=== PATIENT | female | born 1955 ===

== ENCOUNTER 2023-02-08 17:03 | Emergency (ER) | payer OTHER, MEDICAID ==
[~2023-02-08] VITALS: Ht 165.1 cm; Wt 84.0 kg
[2023-02-08 18:46] VITALS: BP 157/84
== END 2023-02-08 21:08 | disposition home or self-care (01) ==
LOC: EDBD 17:03 → ER 17:03
DX: S16.1XXA Strain of muscle, fascia and tendon at neck level, initial encounter (principal); M25.511 Pain in right shoulder; M25.512 Pain in left shoulder; J45.909 Unspecified asthma, uncomplicated; I10 Essential (primary) hypertension; Z88.1 Allergy status to other antibiotic agents; Z88.5 Allergy status to narcotic agent; V89.2XXA Person injured in unspecified motor-vehicle accident, traffic, initial encounter; Y93.89 Activity, other specified; Y92.89 Other specified places as the place of occurrence of the external cause; Y99.8 Other external cause status
CPT/HCPCS: 72125

== ENCOUNTER 2024-12-10 11:23 | Emergency (ER) | payer OTHER, MEDICAID ==
[~2024-12-10] VITALS: Ht 162.6 cm; Wt 86.0 kg
--- NOTE | 2024-12-10 11:33 | ED.PDOC ---
HPI Comments HPI: Poor Historian. 69-year-old female brought in by ambulance from home for evaluation of hypotension. Patient checked her blood pressure today was 117/64. Patient takes blood pressure medications. Patient has history of been experiencing at least three weeks history of occasional dizziness with the associated nausea. Patient is a [facility] patient and is awaiting a Holter monitor for evaluation of palpitations and irregular heartbeat. On arrival patient denies any active symptoms. Past Medical history: Asthma, HTN, breast cancer , DM 2, neuropathy, spinal stenosis, mitral valve prolapse, CHF Past Surgical history: appendectomy, L mastectomy, R lumpectomy and lymph node removal, D and C Medications: lasix, albuterol, amlodipine, atenolol, prozac Allergies: ciprofloxacin, morphine, IV contrast, iodine, codeine, Social History: denies ETOH, denies tobacco use, denies drug use, REVIEW OF SYSTEMS: CONSTITUTIONAL: Denies acute: fever, diaphoresis, chills, HEAD: Denies acute: headache, photophobia Eyes: Denies acute: Double vision, vision loss, eye pain, eye discharge. EARS: Denies acute: tinnitus, hearing loss, ear discharge, ear pain, THROAT: Denies acute: sore throat, swelling, difficulty swallowing , pain with swallowing, change in voice. NECK: Denies acute: neck pain, neck swelling, stiff neck. HEART: Denies acute : chest pain, palpitations, LUNGS: Denies acute: SOB, wheezing, cough, hemoptysis ABDOMEN: Denies acute: abdominal pain, Vomiting, diarrhea, melena , hematemesis, hematochezia SKIN: Denies acute: rash, redness, lesions, itchiness. EXTREMITIES: Denies acute: calf pain, numbness, tingling, weakness, denies pain in extremity. Denies acute: Low back pain. Neuro: Denies acute: focal neurological deficit, motor or sensory focal neurological deficit, tremors, seizure like activity, confusion, change in mental status, loss of bowel or bladder function, cauda equina like symptoms. : Denies acute: dysuria, hematuria, flank pain, increase in urinary frequency. PSYCH: Denies acute: hallucination, suicidal ideation, homicidal ideation. PHYSICAL EXAM: General: -----no---acute distress, awake and alert. Head: normocephalic, atraumatic. Neck: supple, trachea is midline, no swelling. Throat: Normal phonation. Eyes:, no erythema, no purulent discharge, no proptosis, no icterus. Heart: regular rate, regular rhythm, no significant murmur appreciated. Lungs: no apparent respiratory distress, Able to speak in full sentences. No wheezing, no rhonchi, no crackles. No stridors Clear to auscultation bilaterally. Abdomen: non tender to palpation, non distended, soft, no guarding, no rebound, + bowel sounds. Neuro: Awake, Alert, oriented to name, self, situation, follows commands GCS=15. Speech is normal. Skin: no petechia, no purpura, no cyanosis, non-pale, not jaundice. Lower extremities: --2/4 b/l - Pitting edema no deformity, no focal swelling, no calf TTP. Makes eye contact. moves all four extremities. Face: no apparent facial droop. ED COURSE: Time Seen by MD: 11:32 Reviewed Notes: Nurses Notes, Applications Engineer Notes, Medications, Allergies Allergies: Coded Allergies: Ciprofloxacin (Verified Allergy, Unknown, 02/08/23) Iodine (Verified Allergy, Unknown, 12/10/24) Morphine (Verified Allergy, Unknown, 02/08/23) Uncoded Allergies: STATIN (Allergy, Unknown, 12/10/24) Information Source: Patient, Emergency Med Personnel Mode of Arrival: EMS Past Medical History PAST MEDICAL HISTORY: Asthma, HTN Surgical History: Denies all surgeries WOODYARD OPERATOR History: No Pertinent WOODYARD OPERATOR History Family History Family History: Reviewed,noncontributory to illness Social History Smoker: Non-Smoker Alcohol: Denies ETOH Use Drugs: Denies Drug Use Lives In: Home Was a procedure done? Was a procedure done?: No CP Differential Dx Differential Diagnosis: Other (Includes but not limited to thyroid disease, encephalopathy, electrolyte abnormality, sepsis, infection, intracranial pathology, drug adverse effects, arrhythmia, kidney insufficiency, ACS, CVA, malignancy, anemia) X-Ray, Labs, Meds, VS Vital Signs Date Time Temp Pulse Resp B/P (MAP) Pulse Ox O2 Delivery O2 Flow Rate FiO2 12/10/24 16:43 66 18 158/77 (104) 98 12/10/24 16:38 Room Air* 0 21 12/10/24 14:57 62 18 148/69 (95) 98 151/72 (98) 12/10/24 12:45 62 17 97 Room Air 12/10/24 12:45 98.7 62 17 139/89 (106) 97 98.7 12/10/24 12:03 89.9 68 18 144/80 (101) 99 89.9 12/10/24 11:33 61 Lab Test 12/10/24 14:47 12/10/24 12:49 12/10/24 12:38 12/10/24 11:45 Range/Units Lactic Acid Level 2.4 *H 2.8 *H 0.4-2.0 mmol/L Troponin I High Sensitivity < 3 L 3 L 3 L </=34 ng/L Urine Color Yellow Yellow Urine Clarity Clear Clear Urine pH 6.0 5.0-9.0 Urine Specific [place]all 1.023 1.001-1.035 Urine Protein Trace H Negative Urine Ketones Negative Negative Urine Blood Negative Negative /uL Urine Nitrite Negative Negative Urine Bilirubin Negative Negative Urine Urobilinogen Normal Negative mg/dL Urine Leukocyte Esterase 2+ Negative /uL Urine RBC 2 0 - 4 /hpf Urine Microscopic WBC 5 0-5 /HPF Urine Squamous Epithelial Cells Few <5 /hpf Urine Bacteria None seen None Seen /hpf Urine Mucus Few None Seen Urine Glucose Normal Normal mg/dL White Blood Count 9.3 4.4-10.8 10^3/uL Red Blood Count 5.56 H 4.0-5.20 10^6/uL Hemoglobin 14.8 12.2-16.2 g/dL Hematocrit 44.7 36.0-46.0 % Mean Corpuscular Volume 80.4 80.0-100.0 fL Mean Corpuscular Hemoglobin 26.7 L 28.0-32.0 pg Mean Corpuscular Hemoglobin Concent 33.2 32.0-36.0 g/dL Red Cell Distribution Width 14.8 H 11.8-14.3 % Platelet Count 330 140-450 10^3/uL Mean Platelet Volume 7.8 6.9-10.8 fL Neutrophils (%) (Auto) 67.6 37.0-80.0 % Lymphocytes (%) (Auto) 21.4 10.0-50.0 % Monocytes (%) (Auto) 6.3 0.0-12.0 % Eosinophils (%) (Auto) 4.1 0.0-7.0 % Basophils (%) (Auto) 0.6 0.0-2.0 % Neutrophils # (Auto) 6.3 1.6-8.6 10 ^3/uL Lymphocytes # (Auto) 2.0 0.4-5.4 10 ^3/uL Monocytes # (Auto) 0.6 0-1.3 10 ^3/uL Eosinophils # (Auto) 0.4 0-0.8 10 ^3/uL Basophils # (Auto) 0.1 0-0.2 10 ^3/uL Nucleated Red Blood Cells 0.0 % Sodium Level 138 136-145 mmol/L Potassium Level 3.4 L 3.5-5.1 mmol/L Chloride Level 104 98-107 mmol/L Carbon Dioxide Level 23 20-31 mmol/L Anion Gap 11 5-15 Blood Urea Nitrogen 11 9-23 mg/dL Creatinine 0.65 0.550-1.02 mg/dL Glomerular Filtration Rate Calc 96 >90 mL/min BUN/Creatinine Ratio 16.9 10.0-20.0 Serum Glucose 174 H 74-106 mg/dL Calcium Level 9.4 8.7-10.4 mg/dL Magnesium Level 1.9 1.6-2.6 mg/dL Total Bilirubin 0.6 0.2-1.0 mg/dL Aspartate Amino Transferase (AST) 39 13-40 U/L Alanine Aminotransferase (ALT) 42 H 7-40 U/L Alkaline Phosphatase 142 H 46-116 U/L B-Type Natriuretic Peptide 59.51 0-100 pg/mL Total Protein 6.9 5.7-8.2 g/dL Albumin 4.3 3.2-4.8 g/dL [address] [address] Ph: [phone] DIAGNOSTIC IMAGING Diagnostic Imaging Report : [id number] Signed PATIENT: MIGUEL ÁNGEL MARTIN ACCT: [id number] UNIT: [id number] : 1955 LOC: ER ROOM / BED: / AGE / SEX: 69 / F ADM STATUS: REG ER SERVICE 1133 ORDERING PHYSICIAN: KATHY BENNETT DO PROCEDURE(s): CXRP - CHEST PORTABLE REASON: DIZZY ORDER NUMBER(s): [id number], ACCESSION NUMBER(s): [id number] EXAM: XY CHEST PORTABLE REASON FOR EXAM: DIZZY TECHNIQUE: 1 view of the chest COMPARISON: None FINDINGS: LUNGS: No pleural effusion, consolidation, or pneumothorax pick minimal central pulmonary vascular congestion. MEDIASTINUM: Normal cardiac size BONES: No acute osseous abnormality OTHER: None IMPRESSION: 1. No radiographic evidence of an acute cardiopulmonary process. ATED BY: RICHELLE GALLEGOS MD DICTATED DATE/TIME: 12/10/241209 SIGNED BY: RICHELLE GALLEGOS MD SIGNED DATE/TIME: 12/10/241209 CC: Time of 1ST Reevaluation: 14:55 (THE CASE WAS DISCUSSED WITH THE [facility] ADMITTING TEAM (HPI, PHYSICAL EXAM, LABS AND DIAGNOSTIC TESTS THAT WERE AVAILABLE AT THE TIME OF DISPOSITION, ED COURSE, TREATMENT PLAN) ON THE PHONE. DR. THOMAS AUTHORIZATION NUMBER IS--[id number]) Reevaluation 1ST: Improved Time of 2ND Reevaluation: 16:44 (Orthostatics were obtained and were unremarkable. Patient's symptoms have resolved. Patient states that she does not feel comfortable going home. I offered her to send her to [facility]. She initially agreed but then she change your mind and left against medical advice.) Reevaluation 2ND: Improved Patient Education/Counseling: Diagnosis, Treatment Family Education/Counseling: Other Comments Patient presented with the above HPI.-dizziness episodes----workup was initiated. patient was found with the above mentioned diagnosis. the following medications were ordered: please refer to order lists of meds and tests obtained by myself Dr. Bennett. Patient ED course and VS have been stabilized. Patient has been reassessed in the ED and remained in a stable condition. Pertinent incidental findings were discussed with the patient and/or family. Patient/family voices understanding and is agreeable with plan. Patient has been observed in the ED adequate length of time to insure improvement/stability. Escalation of care considered: Consideration of escalation to observation or admission [facility] was contacted per insurance requirement for transfer the patient for further evaluation and treatment of her presentation. Patient decided to leave against medical advice. Patient ambulating independently in the ED. In no acute distress. Denies any active episodes of dizziness while here in the ED. All the reports of any imaging studies that were ordered by myself were reviewed by myself. Departure 1 Departure Time of Disposition: 16:44 Impression: Primary Impression: Episode of dizziness Additional Impression: Left against medical advice Disposition: LEFT AGAINST MEDICAL ADVICE Condition: Stable Discharged With: Self Heart Score Heart Score: Heart Score Response (Comments) Value History Slightly Suspicious 0 EKG Normal 0 Age >65 2 Risk Factors 1 or 2 risk factors 1 Troponin Normal limit 0 Total 3 I personally scribed for KATHY BENNETT DO ([email or web address]) on 12/10/24 at 11:33. Electronically submitted by Naheed Sidhu ([email or web address]). I personally scribed for KATHY BENNETT DO ([email or web address]) on 12/10/24 at 12:31. Electronically submitted by Naheed Sidhu ([email or web address]). KATHY BENNETT DO Dec 10, 2024 11:33
[2024-12-10 12:11] LABS: Basophils # (auto) 0.1 10 ^3/uL (0-0.2); Basophils % (auto) 0.6 % (0.0-2.0); Eosinophils # (auto) 0.4 10 ^3/uL (0-0.8); Eosinophils % (auto) 4.1 % (0.0-7.0); Hematocrit 44.7 % (36.0-46.0); Hemoglobin 14.8 g/dL (12.2-16.2); Lymphocytes % (auto) 21.4 % (10.0-50.0); Mean Corpuscular Hemoglobin 26.7 pg (28.0-32.0); Mean Corpuscular Hgb Conc. 33.2 g/dL (32.0-36.0); Mean Corpuscular Volume 80.4 fL (80.0-100.0); Monocytes # (auto) 0.6 10 ^3/uL (0-1.3); Monocytes % (auto) 6.3 % (0.0-12.0); Neutrophils # (auto) 6.3 10 ^3/uL (1.6-8.6); Neutrophils % (auto) 67.6 % (37.0-80.0); Platelet Count (auto) 330 10^3/uL (140-450); Red Blood Cells 5.56 10^6/uL (4.0-5.20); Red Cell Distribution Width 14.8 % (11.8-14.3); White Blood Cell 9.3 10^3/uL (4.4-10.8)
--- NOTE | 2024-12-10 12:12 | DVH ---
EXAM: XY CHEST PORTABLE REASON FOR EXAM: DIZZY TECHNIQUE: 1 view of the chest COMPARISON: None FINDINGS: LUNGS: No pleural effusion, consolidation, or pneumothorax pick minimal central pulmonary vascular co ngestion. MEDIASTINUM: Normal cardiac size BONES: No acute osseous abnormality OTHER: None IMPRESSION: 1. No radiographic evidence of an acute cardiopulmonary process.
[2024-12-10 12:26] LABS: Alanine Aminotransferase 42 U/L (7-40); Albumin 4.3 g/dL (3.2-4.8); Alkaline Phosphatase 142 U/L (46-116); Anion Gap 11 (5-15); Aspartate Aminotransferase 39 U/L (13-40); BUN/Creatinine Ratio 16.9 (10.0-20.0); Bilirubin, Total 0.6 mg/dL (0.2-1.0); Blood Urea Nitrogen 11 mg/dL (9-23); Calcium 9.4 mg/dL (8.7-10.4); Carbon Dioxide 23 mmol/L (20-31); Chloride 104 mmol/L (98-107); Glucose 174 mg/dL (74-106); Magnesium 1.9 mg/dL (1.6-2.6); Potassium 3.4 mmol/L (3.5-5.1); Sodium 138 mmol/L (136-145); Total Protein 6.9 g/dL (5.7-8.2)
[2024-12-10 12:29] LABS: Lactic Acid w/Reflex 2.8 mmol/L (0.4-2.0)
[2024-12-10 12:45] VITALS: TEMP 98.7
[2024-12-10 13:31] LABS: Urine Bacteria None Seen /hpf (None Seen)
[2024-12-10] MEDS: SODIUM CHLORIDE 0.9% 500 ML IV ONE (13:32)
[2024-12-10 13:38] LABS: Urine Blood Negative /uL (Negative); Urine Clarity Clear (Clear); Urine Color Yellow (Yellow); Urine Mucus FEW (None Seen); Urine Protein, UAD TRACE (Negative); Urine Specific Gravity 1.023 (1.001-1.035); Urine Squamous Epithelial Cell FEW /hpf (<5); Urine Urobilinogen Normal (Negative); Urine WBC 5 /HPF (0-5)
[2024-12-10 16:43] VITALS: BP 158/77; PULSE 66; RESP 18; O2SAT 98
--- NOTE | 2024-12-10 18:43 | ECG ---
[facility] Test Date: 2024-12-10 Test Time: 11:31:47 Pat Name: MIGUEL ÁNGEL MARTIN Department: ED Room: Gender: F Disease Management Nurse: MARY : 1955 Requested By: KATHY BENNETT Order Number: [id number] Reading MD: Alfonso De Leon Measurements Intervals Ola Rate: 61 P: 40 MA: 160 QRS: 1 QRSD: 94 T: 19 QT: 447 QTc: 451 Interpretive Statements Sinus rhythm Probable left atrial enlargement Electronically Signed On 12-10-2024 20:59:17 PDT by Alfonso De Leon Please click the below link to view image of tracing.
== END 2024-12-10 16:52 | disposition left against medical advice (07) ==
LOC: EDBD 11:23 → ER 11:25
DX: R42 Dizziness and giddiness (principal); R11.0 Nausea; I95.9 Hypotension, unspecified; J45.909 Unspecified asthma, uncomplicated; E11.40 Type 2 diabetes mellitus with diabetic neuropathy, unspecified; I11.0 Hypertensive heart disease with heart failure; I50.9 Heart failure, unspecified; Z90.49 Acquired absence of other specified parts of digestive tract; Z85.3 Personal history of malignant neoplasm of breast; Z91.041 Radiographic dye allergy status; Z88.1 Allergy status to other antibiotic agents; Z88.5 Allergy status to narcotic agent; Z88.8 Allergy status to other drugs, medicaments and biological substances
CPT/HCPCS: 36415; 71045; 80053; 81001; 83605; 83735; 83880; 84484; 85025; 93005